=== PATIENT | female | born 1945 | race Caucasian/White ===

== ENCOUNTER 2020-08-14 21:03 | Inpatient (IN) | payer MEDICARE, SELFPAY ==
[2020-08-14 21:13] VITALS: BMI 26.1
--- NOTE | 2020-08-14 21:52 | PCM.HP.STD ---
Problem List (1) Debility Status: Acute (2) Weakness Status: Acute (3) Acute on chronic anemia Status: Acute (4) Iron deficiency anemia Status: Chronic (5) Bedbug bite Status: Chronic (6) Orthostatic hypotension Status: Chronic (7) Colon cancer Status: Resolved (8) Pseudoseizure Status: Chronic (9) Hypertension Status: Chronic (10) Hyperlipidemia Status: Chronic (11) Hypothyroidism Status: Chronic (12) GERD (gastroesophageal reflux disease) Status: Chronic (13) Depression Status: Chronic (14) Raynaud disease Status: Chronic History of Present Illness Date of Admission: 08/14/20 Chief Complaint: Here for rehabilitation, strengthening, prior to discharge home alone. The patient is a 75 year old Female with below past medical history with followin08/11/20 [facility] Emergency Department with weakness. Hemoglobin 7.2, Chest X-ray negative. Weak, tired. Usually receives IV iron weekly, but missed last 2 weeks. Weakness worsening, shortness of breath with minimal exertion. Transfused 1 unit packed red blood cells. 08/12/20 Staff wearing PPE to avoid bedbugs, patient very upset by this. Transfused 1 unit packed red blood cells. 08/13/20 Emotional about isolation for bedbug infestation. April 2020. Hemoglobin stable at 8.9. PT/OT recommended assisted facility. 08/14/20 Admit to TCU with debility, here for rehabilitation, strengthening, prior to discharge home alone. Past Medical History Past Medical History (Chronic Problems): Chronic Problems Iron deficiency anemia (Chronic) Bedbug bite (Chronic) Orthostatic hypotension (Chronic) Pseudoseizure (Chronic) Hypertension (Chronic) Hyperlipidemia (Chronic) Hypothyroidism (Chronic) GERD (gastroesophageal reflux disease) (Chronic) Depression (Chronic) Raynaud disease (Chronic) Allergies lisinopril Allergy (Verified 08/14/20 21:18) Fever and skin rash orange juice Allergy (Verified 08/14/20 21:18) PT UNSURE OF REACTION Sulfa (Sulfonamide Antibiotics) Allergy (Verified 08/14/20 21:18) Rash Home Medications: Ambulatory Orders Medication Instructions Recorded Atorvastatin Calcium 20 mg PO DAILY 08/14/20 Bupropion HCl [Bupropion HCl Sr] 150 mg PO DAILY 08/14/20 Citalopram [Celexa] 20 mg PO DAILY 08/14/20 Docusate Sodium [Colace] 1 cap PO BID 08/14/20 Ferrous Sulfate 325 mg PO TIDCM 08/14/20 Hydroxyzine HCl 25 mg PO 4X/DAY PRN PRN 08/14/20 Levetiracetam 750 mg PO BID 08/14/20 Levothyroxine [Synthroid] 75 mcg PO DAILY 08/14/20 Midodrine HCl 5 mg PO DAILY 08/14/20 Multivitamin 1 ea PO DAILY MDD 1 08/14/20 Nystatin Powder [Mycostatin Powder] 1 applic TOPICAL TID MDD rash 08/14/20 Ondansetron [Zofran] 8 mg PO TID PRN PRN 08/14/20 Pantoprazole Sodium 40 mg PO DAILY 08/14/20 Ketotifen Fumarate 1 drp OP Q12H 08/15/20 Surgical History: pacemaker implantation, - - Right hemicolectomy. 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 Lives: Alone Smoking Status: Former smoker Tobacco Use: Cigarettes Alcohol: None Drugs: None - *Family History Maternal History Items: No pertinent history Paternal History Items: No pertinent history Review of Systems Constitutional: Denies: Chills, Fever, Weight Change HEENT: Denies: Head Aches, Sinus Congestion, Sinus Drainage Cardiovascular: Denies: Chest Pain, Palpitations Respiratory: Denies: Cough, Shortness of breath at rest, Sputum production Gastrointestinal: Denies: Abdominal Pain, Nausea, Vomiting Genitourinary: Denies: Dysuria Musculoskeletal: Denies: Joint Pain, Joint Tenderness Skin: Denies: Rash, Wounds Neurological: Denies: Numbness, Tingling, Focal weakness Psychiatric: Denies: Anxiety, Depression, Homicidal Ideations, Suicidal Ideations Hematologic/ Lymphatic: Denies: Easy Bruising, Easy Bleeding VTE Information - Inpt Only VTE Present on Admission: No VTE Mechan Device Prophylaxis: Knee High JOHNNY Hose VTE Pharm Prophylaxis ordered?: No Reason prophylaxis not ordered:: Medical Contraindication Patient Problems: Active and Suspected Problems Debility (Acute) Weakness (Acute) Acute on chronic anemia (Acute) - Physical Exam Vitals/I&O's: Weight: 73.482 kg Body Mass Index (BMI) 26.1 General: Alert, Oriented x3, Cooperative HEENT: Atraumatic, PERRLA, EOMI, Normocephalic Neck: Supple, No JVD, Negative Carotid Bruits Lungs: Clear to auscultation, Normal air movement Cardiovascular: Regular rate, No murmurs Abdomen: Bowel Sounds Present, Soft, Non Tender Extremities: No edema, Capillary Refill Less than 3 Seconds Skin: No rashes, No breakdown Musculoskeletal: No Tenderness to Palpation of Joints or Extremities Neurological: Cranial nerves II-XII grossly intact Psych/Mental Status: Normal Affect, Appropriate Current Medications Atorvastatin Calcium (Atorvastatin Calcium 20 Mg Tablet) mg PO DAILY [facility] Citalopram Hydrobromide (Citalopram 20 Mg Tablet) 20 mg PO DAILY [facility] Docusate Sodium (Docusate Sodium 100 Mg Capsule) mg PO DAILY [facility] Ferrous Sulfate (Ferrous Sulfate 325 Mg Tablet) 325 mg PO TID MATEO Levetiracetam (Levetiracetam 750 Mg Tablet) 750 mg PO BID [facility] Levothyroxine Sodium (Levothyroxine 75 Mcg Tablet) mcg PO DAILY [facility] Midodrine (Midodrine Hcl 5 Mg Tablet) 5 mg PO DAILY [facility] Non-Formulary Medication (Bupropion Hcl [Bupropion Hcl Sr]) 1 tab PO DAILY [facility] Non-Formulary Medication (Hydroxyzine Hcl) 25 mg PO 4X/DAY PRN PRN PRN Reason: NAUSEA Non-Formulary Medication (Multivitamin) 1 ea PO DAILY [facility] Nystatin (Nystatin Powder 15gm Bottle) 1 applic TOPICAL TID ONE; Protocol Stop: 08/14/20 21:44 Ondansetron HCl (Ondansetron 8 Mg Tablet) 8 mg PO TID PRN PRN PRN Reason: NAUSEA Pantoprazole Sodium (Pantoprazole Sodium 40 Mg Tablet) 40 mg PO DAILY [facility] Assessment/Plan All Active Problems Debility (Acute) Weakness (Acute) Acute on chronic anemia (Acute) Colon cancer (Resolved) 75 year old female with below past medical history hospitalized for acute on chronic anemia, underwent 2 unit packed red blood cells transfusion, complicated by bedbug infestation, admitted to TCU with debility, here for rehabilitation, strengthening, prior to discharge home alone. Debility - PT/OT. Pain - Tylenol 1000MG Q6H PRN pain (1-10). Bowel - Miralax 17GM daily, Senna/colace 1 tablet BID, Dulcolax 10MG [place] daily PRN. Adult immunization - Administer Prevnar 13, Pneumovax 23, Fluzone as appropriate. DVT prophylaxis - Hold due to anemia. Hyperlipidemia - Atorvastatin 20MG QHS. Depression - Citalopram 20MG daily, Bupropion SR 150MG 1 tablet daily, stable chronic intermediate manager use, GDR not recommended. Iron deficiency anemia - Ferrex 150MG TID. Nausea - Zofran 8MG PO TID PRN, Hydroxyzine 25MG 4x/day PRN. Pseudoseizure - Keppra 750MG BID. Hypothyroidism - Levothyroxine 75MCG daily. Orthostatic hypotension - Midodrine 5MG daily. Nutrition - MVI daily. GERD - Pantoprazole 40MG daily.
[2020-08-14 21:54] VITALS: BMI 26.1
[2020-08-14 22:14] VITALS: PULSE 63; RESP 16; O2SAT 94
[2020-08-14 22:38] VITALS: BP 120/66; PULSE 63; RESP 16; TEMP 36.9; O2SAT 94
[2020-08-15 05:19] VITALS: BP 116/65; PULSE 70; RESP 18; TEMP 36.7; O2SAT 93
[2020-08-15] MEDS: Citalopram 20 MG Tablet PO (05:20)
[2020-08-15] MEDS: buPROPion 75 MG Tablet PO (05:20)
[2020-08-15] MEDS: Midodrine HCl 5 MG Tablet PO (05:20)
[2020-08-15] MEDS: levETIRAcetam 750 MG Tablet PO ×2 (05:20→17:25)
[2020-08-15] MEDS: Pantoprazole Sodium 40 MG Tablet PO (05:20)
[2020-08-15] MEDS: Levothyroxine 75 MCG Tablet PO (05:20)
[2020-08-15] MEDS: Nystatin Powder 15gm Bottle 1 APPLIC TOPICAL ×2 (05:25→17:27)
[2020-08-15 05:56] LABS: Absolute Neutrophil Count 3.3 X10^3/uL (2.0-7.7); Basophil% 1.7 % (0-1); Eosinophil# 0.28 X10^3/uL; Eosinophils% 4.8 % (0-5); Hematocrit 29.9 % (37-47); Hemoglobin 8.8 g/dL (12.0-15.0); Lymphocyte % 29.2 % (19-41); Mean Corp Hgb Conc 29.4 g/dL (32-36); Mean Corpuscular Hgb 25.3 pg (27.0-32.0); Mean Corpuscular Volume 85.9 fL (81-99); Mean Platelet Vol. 8.4 fl (6.2-12.0); Monocyte# 0.46 X10^3/uL; Monocyte% 7.9 % (0-10); NRBC Flagged by Analyzer 0 % (0-5); Neutrophil # 3.27 X10^3/uL (2.7-7.7); Neutrophil % 56.1 % (47-70); Platelet Count 472 K/mm3 (150-450); RBC Distribution Width CV 16.4 % (11.6-14.6); RBC Distribution Width SD 51.2 fl (35.1-43.9); Red Blood Count 3.48 M/mm3 (4.2-5.4); White Blood Count 5.8 K/mm3 (4.4-11.0)
[2020-08-15 06:21] LABS: Anion Gap 5 (5-15); BUN 21 mg/dL (7-18); BUN/Creat Ratio 18.4 RATIO (10-20); Calcium,Total 9.2 mg/dL (8.5-10.1); Chloride 107 mmol/L (98-107); Creatinine, Serum 1.14 mg/dL (0.55-1.02); EST Glomerular Filtration Rate 50 mL/min (>60); Est Glom Filt Rate - Afr Amer 60 mL/min (>60); Estimated Creatinine Clearance 40.53 ml/min; Glucose 89 mg/dL (74-106); Potassium 4.2 mmol/L (3.5-5.1); Sodium Level 140 mmol/L (136-145)
[2020-08-15] MEDS: Multivitamins,Therapeutic Tablet 1 TABLET PO (08:26)
[2020-08-15] MEDS: Magnesium Citrate 300 ML PO (08:35)
--- NOTE | 2020-08-15 09:46 | NURSING ---
Left message for Dr. Starr's at [facility], office requesting information about the weekly iron infusions the patient receives.
[2020-08-15] MEDS: Acetaminophen 500 MG Tablet 1000 MG PO (10:25)
[2020-08-15 10:52] VITALS: PULSE 67; RESP 18; O2SAT 98
[2020-08-15 13:46] VITALS: BP 147/64; PULSE 66; RESP 15; TEMP 36.8; O2SAT 96
--- NOTE | 2020-08-15 14:24 | NURSING ---
Received faxed orders for iron infusion from Dr. Starr's office. Will notify Dr. Luciano of new orders.
--- NOTE | 2020-08-15 15:19 | NS ---
NASIRN received call from MADALYN Franz as Res reported a significant wt loss since March during social work assessment. Res stated wt in March was 235# and went down to 160#. This appears to be consistent with information given to NASIR Austin/DIALLO and is documented in Res Nutrition Assessment. RDN will follow-up w/ Res tomorrow, 08/16 to provide further support and confirm that Res is consuming enough nutrition during TCU stay. Van Herzog MS, MICHAEL, LD
[2020-08-15] MEDS: Atorvastatin Calcium 20 MG Tablet PO (22:04)
[2020-08-16 06:07] VITALS: BP 93/60; PULSE 67; RESP 16; TEMP 36.7; O2SAT 92
[2020-08-16] MEDS: levETIRAcetam 750 MG Tablet PO ×2 (06:09→17:17)
[2020-08-16] MEDS: Citalopram 20 MG Tablet PO (06:09)
[2020-08-16] MEDS: Levothyroxine 75 MCG Tablet PO (06:10)
[2020-08-16] MEDS: Midodrine HCl 5 MG Tablet PO (06:10)
[2020-08-16] MEDS: buPROPion (SR) 150 MG Tablet.SA PO (06:10)
[2020-08-16] MEDS: Pantoprazole Sodium 40 MG Tablet PO (06:10)
[2020-08-16] MEDS: Nystatin Powder 15gm Bottle 1 APPLIC TOPICAL ×2 (06:11→17:18)
[2020-08-16] MEDS: Multivitamins,Therapeutic Tablet 1 TABLET PO (08:21)
[2020-08-16] MEDS: Tuberculin,Purif.prot.deriv. 50 TU/ML Vial 5 ML ID (12:21)
--- NOTE | 2020-08-16 14:39 | CHAPLAIN ---
Type of Pastoral Visit _x__ Initial Visit ___ Follow-up Visit ___ On-call Visit ___ General Patient Visit ___ Spiritual Assessment ___ Family Conference ___ Bereavement ___ Rapid Response ___ Code Blue ___ Other (describe below) Pastoral Care Referral From _x__ Patient ___ Family ___ Nurse ___ Physician ___ Drawer In ___ Cloud Engagement Partner ___ Other (describe below) Sacrament/Intervention _x__ Active listening ___ Anointing ___ Lutheran _x__ Bereavement ___ Communion _x__ Nisha exploration ___ _x__ Life review _x__ Prayer ___ Reconciliation ___ Sacrament of Sick _x__ Supportive presence ___ Wedding ___ Other (describe below) Pastoral Comments patient was newly and admits that she did not have a desire to eat and found herself very weak; pt has no children and all siblings are ; 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
--- NOTE | 2020-08-16 15:21 | PCM.PN.RX ---
<Fe Burns - Last Filed: 08/16/20 15:21> Progress Note - Pharmacy Subjective: TCU Admission Objective: Allergies lisinopril Allergy (Verified 08/14/20 21:18) Fever and skin rash orange juice Allergy (Verified 08/14/20 21:18) PT UNSURE OF REACTION Sulfa (Sulfonamide Antibiotics) Allergy (Verified 08/14/20 21:18) Rash Current Medications Generic Name Dose Route Start Last Admin Trade Name Freq PRN Reason Stop Dose Admin Acetaminophen 1,000 mg 08/15/20 18:14 Acetaminophen 500 Mg Tablet PO Q6H PRN PRN Pain Score 1-3 Atorvastatin Calcium 20 mg 08/15/20 22:00 08/15/20 22:04 Atorvastatin Calcium 20 Mg Tablet PO 20 mg QHS MATEO Administration Bisacodyl 10 mg 08/14/20 22:12 Bisacodyl 10 Mg Suppository RECTAL DAILY PRN Constipation Bupropion HCl 150 mg 08/16/20 06:00 08/16/20 06:10 Bupropion (Sr) 150 Mg Tablet.Sa PO 150 mg DAILY MATEO Administration Citalopram Hydrobromide 20 mg 08/15/20 06:00 08/16/20 06:09 Citalopram 20 Mg Tablet PO 20 mg DAILY MATEO Administration Docusate Sodium 100 mg 08/15/20 18:00 08/16/20 06:09 Docusate Sodium 100 Mg Capsule PO Not Given BID MATEO Hydroxyzine Pamoate 25 mg 08/14/20 22:10 Hydroxyzine Berenice 25 Mg Capsule PO 4X/DAY PRN PRN NAUSEA Levetiracetam 750 mg 08/15/20 06:00 08/16/20 06:09 Levetiracetam 750 Mg Tablet PO 750 mg BID MATEO Administration Levothyroxine Sodium 75 mcg 08/15/20 06:00 08/16/20 06:10 Levothyroxine 75 Mcg Tablet PO 75 mcg DAILY@0600 MATEO Administration Midodrine 5 mg 08/15/20 06:00 08/16/20 06:10 Midodrine Hcl 5 Mg Tablet PO 5 mg DAILY MATEO Administration Multivitamins 1 tablet 08/15/20 08:00 08/16/20 08:21 Multivitamins,Therapeutic Tablet PO 1 tablet DAILYCM MATEO Administration Nutritional Formula (Lactose Free) 120 ml 08/15/20 06:00 08/16/20 12:18 Ensure Enlive 120 Ml Liquid PO Not Given 4X/DAY [facility] Nystatin 1 applic 08/15/20 06:00 08/16/20 06:11 Nystatin Powder 15gm Bottle TOPICAL 1 applicatio BID MATEO Administration Protocol Ondansetron HCl 8 mg 08/14/20 21:40 Ondansetron Odt 4 Mg Tablet PO TID PRN PRN NAUSEA Oxycodone HCl 5 mg 08/15/20 18:14 Oxycodone 5 Mg Tablet PO Q4H PRN PRN Pain Score 4-10 Pantoprazole Sodium 40 mg 08/15/20 06:00 08/16/20 06:10 Pantoprazole Sodium 40 Mg Tablet PO 40 mg DAILY [facility] Administration Tuberculin PPD 5 tu 08/23/20 10:00 Tuberculin,Purif.Prot.Deriv. 50 Tu/Ml Vial ID 08/23/20 10:01 X1 ONE Problem List Debility (Acute) Weakness (Acute) Acute on chronic anemia (Acute) Iron deficiency anemia (Chronic) Bedbug bite (Chronic) Orthostatic hypotension (Chronic) Pseudoseizure (Chronic) Hypertension (Chronic) Hyperlipidemia (Chronic) Hypothyroidism (Chronic) GERD (gastroesophageal reflux disease) (Chronic) Depression (Chronic) Raynaud disease (Chronic) Vital Signs Temp Pulse Resp BP Pulse Ox 96.6 F L 65 17 115/65 94 08/16/20 14:11 08/16/20 14:11 08/16/20 14:11 08/16/20 14:11 08/16/20 14:11 Oxygen Delivery Method Room Air Weight: 73.482 kg Body Mass Index (BMI) 26.1 Sodium 140 mmol/L (136-145) 08/15/20 05:15 Potassium 4.2 mmol/L (3.5-5.1) 08/15/20 05:15 Chloride 107 mmol/L (98-107) 08/15/20 05:15 Carbon Dioxide 28.0 mmol/L (21.0-32.0) 08/15/20 05:15 Anion Gap 5 (5-15) 08/15/20 05:15 BUN 21 mg/dL (7-18) H 08/15/20 05:15 Creatinine 1.14 mg/dL (0.55-1.02) H 08/15/20 05:15 Est GFR (MDRD) Af Amer 60 mL/min (>60) 08/15/20 05:15 Est GFR (MDRD) Non-Af 50 mL/min (>60) L 08/15/20 05:15 BUN/Creatinine Ratio 18.4 RATIO (-20) 08/15/20 05:15 Glucose 89 mg/dL (74-106) 08/15/20 05:15 Assessment/Plan: 1. Pain: Tylenol 1000mg PO Q6H PRN pain (1-3) and oxycodone 5mg PO Q4H PRN pain score 1-10. Please continue to monitor for increased pain and PRN usage. *2. Hyperlipidemia: atorvastatin 20mg PO QHS. Please continue to monitor for muscle pain. Please consider ordering a lipid panel now and then annually as clinically appropriate. Patient does not have a lipid panel in the chart. Thanks. 3. Pseudoseizure: levetiracetam 750mg PO BID. Please continue to monitor for confusion and rash. *4. Hypothyroidism: levothyroxine 75mcg PO daily. Patient does not have a TSH level. Please consider ordering one now and then annually as clinically appropriate. Please continue to monitor for S/S of hypo/hyperthyroidism. Thanks. 5. Orthostatic hypotension: midodrine 5mg PO daily. Please continue to monitor BP (last 115/65). 6. Nutrition: MVI 1T PO daily. Please continue to monitor. 7. GERD: pantoprazole 40mg PO daily. Please continue to monitor for improvement/worsening of GERD symptoms. 8. Ondansetron 8mg PO QID PRN nausea, Hydroxyzine 25MG 4x/day PRN. Please continue to monitor for improvement/worsening of nausea and PRN use. Psychotropic Medications: 1. Depression: citalopram 20mg PO daily and bupropion SR 150MG PO daily. Please see physician note about GDR. *Unnecessary Medications: Ketotifen eye drops 1gtt OU Q12h. I did not see a documented indication for this medication. Please consider adding an indication. *Bowel Regimen: Docusate 100mg PO BID and bisacodyl suppository 10mg [place] daily PRN constipation. Patient has refused 2/2 doses. Please consider changing from scheduled to PRN. Please continue to monitor for S/S of constipation/diarrhea and PRN usage. Thanks. Date of Note:: 08/16/20 - Provider Comments Provider responsibility: Provider responsible to enter orders to implement recommendations <Usama Luciano Chi - Last Filed: 08/16/20 17:41> Progress Note - Pharmacy Subjective: [] Objective: Allergies lisinopril Allergy (Verified 08/14/20 21:18) Fever and skin rash orange juice Allergy (Verified 08/14/20 21:18) PT UNSURE OF REACTION Sulfa (Sulfonamide Antibiotics) Allergy (Verified 08/14/20 21:18) Rash Current Medications Generic Name Dose Route Start Last Admin Trade Name Freq PRN Reason Stop Dose Admin Acetaminophen 1,000 mg 08/15/20 18:14 Acetaminophen 500 Mg Tablet PO Q6H PRN PRN Pain Score 1-3 Atorvastatin Calcium 20 mg 08/15/20 22:00 08/15/20 22:04 Atorvastatin Calcium 20 Mg Tablet PO 20 mg QHS MATEO Administration Bisacodyl 10 mg 08/14/20 22:12 Bisacodyl 10 Mg Suppository RECTAL DAILY PRN Constipation Bupropion HCl 150 mg 08/16/20 06:00 08/16/20 06:10 Bupropion (Sr) 150 Mg Tablet.Sa PO 150 mg DAILY MATEO Administration Citalopram Hydrobromide 20 mg 08/15/20 06:00 08/16/20 06:09 Citalopram 20 Mg Tablet PO 20 mg DAILY MATEO Administration Docusate Sodium 100 mg 08/15/20 18:00 08/16/20 17:18 Docusate Sodium 100 Mg Capsule PO Not Given BID MATEO Hydroxyzine Pamoate 25 mg 08/14/20 22:10 Hydroxyzine Berenice 25 Mg Capsule PO 4X/DAY PRN PRN NAUSEA Levetiracetam 750 mg 08/15/20 06:00 08/16/20 17:17 Levetiracetam 750 Mg Tablet PO 750 mg BID MATEO Administration Levothyroxine Sodium 75 mcg 08/15/20 06:00 08/16/20 06:10 Levothyroxine 75 Mcg Tablet PO 75 mcg DAILY@0600 MATEO Administration Midodrine 5 mg 08/15/20 06:00 08/16/20 06:10 Midodrine Hcl 5 Mg Tablet PO 5 mg DAILY MATEO Administration Multivitamins 1 tablet 08/15/20 08:00 08/16/20 08:21 Multivitamins,Therapeutic Tablet PO 1 tablet DAILYCM MATEO Administration Nutritional Formula (Lactose Free) 120 ml 08/15/20 06:00 08/16/20 17:17 Ensure Enlive 120 Ml Liquid PO Not Given 4X/DAY MATEO Nystatin 1 applic 08/15/20 06:00 08/16/20 17:18 Nystatin Powder 15gm Bottle TOPICAL 1 applicatio BID MATEO Administration Protocol Ondansetron HCl 8 mg 08/14/20 21:40 Ondansetron Odt 4 Mg Tablet PO TID PRN PRN NAUSEA Oxycodone HCl 5 mg 08/15/20 18:14 Oxycodone 5 Mg Tablet PO Q4H PRN PRN Pain Score 4-10 Pantoprazole Sodium 40 mg 08/15/20 06:00 08/16/20 06:10 Pantoprazole Sodium 40 Mg Tablet PO 40 mg DAILY MATEO Administration Tuberculin PPD 5 tu 08/23/20 10:00 Tuberculin,Purif.Prot.Deriv. 50 Tu/Ml Vial ID 08/23/20 10:01 X1 ONE Problem List Debility (Acute) Weakness (Acute) Acute on chronic anemia (Acute) Iron deficiency anemia (Chronic) Bedbug bite (Chronic) Orthostatic hypotension (Chronic) Pseudoseizure (Chronic) Hypertension (Chronic) Hyperlipidemia (Chronic) Hypothyroidism (Chronic) GERD (gastroesophageal reflux disease) (Chronic) Depression (Chronic) Raynaud disease (Chronic) Vital Signs Temp Pulse Resp BP Pulse Ox 96.6 F L 65 17 115/65 94 08/16/20 14:11 08/16/20 14:11 08/16/20 14:11 08/16/20 14:11 08/16/20 14:11 Oxygen Delivery Method Room Air Weight: 73.482 kg Body Mass Index (BMI) 26.1 Sodium 140 mmol/L (136-145) 08/15/20 05:15 Potassium 4.2 mmol/L (3.5-5.1) 08/15/20 05:15 Chloride 107 mmol/L (98-107) 08/15/20 05:15 Carbon Dioxide 28.0 mmol/L (21.0-32.0) 08/15/20 05:15 Anion Gap 5 (5-15) 08/15/20 05:15 BUN 21 mg/dL (7-18) H 08/15/20 05:15 Creatinine 1.14 mg/dL (0.55-1.02) H 08/15/20 05:15 Est GFR (MDRD) Af Amer 60 mL/min (>60) 08/15/20 05:15 Est GFR (MDRD) Non-Af 50 mL/min (>60) L 08/15/20 05:15 BUN/Creatinine Ratio 18.4 RATIO (-20) 08/15/20 05:15 Glucose 89 mg/dL (74-106) 08/15/20 05:15 Assessment/Plan: Psychotropic Medications: Unnecessary Medications: Bowel Regimen: - Provider Comments Provider responsibility: Provider responsible to enter orders to implement recommendations Provider Comments to Recommendations by Pharmacy: Agree
--- NOTE | 2020-08-16 16:01 | NURSING ---
This nurse called over to [facility] and spoke with Pharmacist Dagmar regarding Iron infusion, Dagmar stated she spoke with the doctor and she would fax the new orders over to us.
--- NOTE | 2020-08-16 16:24 | CASEMGMT ---
Social Work Insurance issued CLD 08/18, DC 08/19. Contacted C.M. to confirm the pt's DC date and that she lives at home alone. Ousmane.M. replied she no longer meets criteria. Spoke with pt about DC, if she felt ready to DC home alone, explained appeal rights. pt does not want to appeal, and she is agreeable to DC. Pt agreeable to outpatient therapy as HHC will go into her home. Pt does drive but has niece and nephew to help transport. Pt requested [facility] outpatient PT/OT. Referral made. No DME needs. Provided MOW resources. Niece to transport pt home. 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
--- NOTE | 2020-08-16 17:12 | PCA ---
Spoke with Katty at the [place] infusion center. They cannot get patient in till next week for iron transfusion. Patient is being discharged on Thursday. Patient prefers to keep going to the [facility] for infusions. LANDEN steven
--- NOTE | 2020-08-16 19:48 | DCINST_ITS ---
- Discharge Diagnoses Current Active Problems: Current Active and Chronic Problems Debility (Acute) Weakness (Acute) Acute on chronic anemia (Acute) Iron deficiency anemia (Chronic) Bedbug bite (Chronic) Orthostatic hypotension (Chronic) Pseudoseizure (Chronic) Hypertension (Chronic) Hyperlipidemia (Chronic) Hypothyroidism (Chronic) GERD (gastroesophageal reflux disease) (Chronic) Depression (Chronic) Raynaud disease (Chronic) You will use the following diet at home:: No restrictions, Regular Your food should be the consistency of: Regular Your liquids should be the consistency of: Regular/Thin Discharge Activity: Return to Normal Activity, May Shower, Use Walker Weight Bearing Status: Weight bearing as tolerated Call your doctor if you observe: Fever of 101 or Higher, Inability to urinate, Inability to have a bowel movement, Shortness of breath, Chest pain, Uncontrolled pain Allergies/Adverse Reactions: Allergies lisinopril Allergy (Verified 08/14/20 21:18) Fever and skin rash orange juice Allergy (Verified 08/14/20 21:18) PT UNSURE OF REACTION Sulfa (Sulfonamide Antibiotics) Allergy (Verified 08/14/20 21:18) Rash Medications to take at Discharge Atorvastatin Calcium 20 mg PO DAILY 08/14/20 Bupropion HCl [Bupropion HCl Sr] 150 mg PO DAILY 08/14/20 Citalopram [Celexa] 20 mg PO DAILY 08/14/20 Docusate Sodium [Colace] 1 cap PO BID 08/14/20 Hydroxyzine HCl 25 mg PO 4X/DAY PRN PRN 08/14/20 Levetiracetam 750 mg PO BID 08/14/20 Levothyroxine [Synthroid] 75 mcg PO DAILY 08/14/20 Midodrine HCl 5 mg PO DAILY 08/14/20 Multivitamin 1 ea PO DAILY MDD 1 08/14/20 Nystatin Powder [Mycostatin Powder] 1 applic TOPICAL TID MDD rash 08/14/20 Pantoprazole Sodium 40 mg PO DAILY 08/14/20 Ketotifen Fumarate 1 drp OP Q12H 08/15/20 Acetaminophen [Tylenol] 1,000 mg PO Q6H PRN PRN tab 08/16/20 Atorvastatin Calcium [Lipitor] 20 mg PO QHS tab 08/16/20 Docusate Sodium [Colace] 100 mg PO BID cap 08/16/20 Ketotifen Fumarate 1 drp EACH EYE Q12 bottle 08/16/20 Multivitamins,Therapeutic [Multivitamin] 1 tab PO DAILYCM tab 08/16/20 Nystatin Powder [Mycostatin Powder] 1 applic TOPICAL BID bottle 08/16/20 buPROPion SR [Wellbutrin SR (150mg tablets)] 150 mg PO DAILY tablet.sa 08/16/20 hydrOXYzine pamoate capsule [Vistaril pamoate capsule] 25 mg PO 4X/DAY PRN PRN cap 08/16/20 Please follow up with your Primary Care Physician in: 1 week. Test Results: Test results from this visit will be discussed in further detail at your follow- up appointment, if applicable. Proposed Discharge Date: 08/19/20
--- NOTE | 2020-08-16 19:50 | PCM.DC.SUM ---
Discharge Date and Diagnosis - Problem List Patient Problems: Active and Suspected Problems Debility (Acute) Weakness (Acute) Acute on chronic anemia (Acute) Date of Admission: 08/14/20 Date of Discharge: 08/19/20 - Primary Discharge Diagnosis Acute Problems: Active Problems Debility (Acute) Weakness (Acute) Acute on chronic anemia (Acute) - Secondary Discharge Diagnosis Chronic Problems: Chronic Problems Iron deficiency anemia (Chronic) Bedbug bite (Chronic) Orthostatic hypotension (Chronic) Pseudoseizure (Chronic) Hypertension (Chronic) Hyperlipidemia (Chronic) Hypothyroidism (Chronic) GERD (gastroesophageal reflux disease) (Chronic) Depression (Chronic) Raynaud disease (Chronic) Hospital Course and Treatment Imaging Results: 08/15/20 02:54 Diet: Regular - General Food consistency:: Regular Liquid Consistency:: Regular/Thin Is pt able to select menu?: Yes Labs (Last 48 Hours) 08/15/20 08/15/20 08/15/20 05:15 05:15 06:35 WBC 5.8 RBC 3.48 L Hgb 8.8 L Hct 29.9 L MCV 85.9 MCH 25.3 L MCHC 29.4 L RDW Std Deviation 51.2 H RDW Coeff of Garth 16.4 H Plt Count 472 H MPV 8.4 Immature Gran % (Auto) 0.300 Neut % (Auto) 56.1 Lymph % (Auto) 29.2 Lamar % (Auto) 7.9 Eos % (Auto) 4.8 Baso % (Auto) 1.7 H Absolute Neuts (auto) 3.3 Absolute Lymphs (auto) 1.70 Nucleated RBC % 0 Sodium 140 Potassium 4.2 Chloride 107 Carbon Dioxide 28.0 Anion Gap 5 BUN 21 H Creatinine 1.14 H Estim Creat Clear Calc 40.53 Est GFR (MDRD) Af Amer 60 Est GFR (MDRD) Non-Af 50 L BUN/Creatinine Ratio 18.4 Glucose 89 Calcium 9.2 COVID-19 (MICHAEL) Not Detected Operations: None Procedures: None Summary of Care Provided: The patient is a 75 year old Female with below past medical history hospitalized for acute on chronic anemia, underwent 2 unit packed red blood cells transfusion, complicated by bedbug infestation, admitted to TCU with debility, here for rehabilitation, strengthening, prior to discharge home alone. Follow up with Hematology for weekly iron infusions. Discharge home alone, [facility] PT/OT. Patient Problems: Active and Suspected Problems Debility (Acute) Weakness (Acute) Acute on chronic anemia (Acute) - Physical Exam Vitals/I&O's: Vital Signs Temp Pulse Resp BP Pulse Ox 96.6 F L 65 17 115/65 94 08/16/20 14:11 08/16/20 14:11 08/16/20 14:11 08/16/20 14:11 08/16/20 14:11 Oxygen Delivery Method Room Air Weight: 73.482 kg Body Mass Index (BMI) 26.1 Intake and Output for Last 24 Hours 08/14/20 08/15/20 08/16/20 23:59 23:59 23:59 Intake Total 660 / 660 360 / 360 Balance 660 / 660 360 / 360 Current Medications Acetaminophen (Acetaminophen 500 Mg Tablet) 1,000 mg PO Q6H PRN PRN PRN Reason: Pain Score 1-3 Atorvastatin Calcium (Atorvastatin Calcium 20 Mg Tablet) 20 mg PO QHS [facility] Last Admin: 08/15/20 22:04 Dose: 20 mg Documented by: Bisacodyl (Bisacodyl 10 Mg Suppository) 10 mg RECTAL DAILY PRN PRN Reason: Constipation Bupropion HCl (Bupropion (Sr) 150 Mg Tablet.Sa) 150 mg PO DAILY [facility] Last Admin: 08/16/20 06:10 Dose: 150 mg Documented by: Citalopram Hydrobromide (Citalopram 20 Mg Tablet) 20 mg PO DAILY [facility] Last Admin: 08/16/20 06:09 Dose: 20 mg Documented by: Docusate Sodium (Docusate Sodium 100 Mg Capsule) 100 mg PO BID [facility] Last Admin: 08/16/20 17:18 Dose: Not Given Documented by: Hydroxyzine Pamoate (Hydroxyzine Berenice 25 Mg Capsule) 25 mg PO 4X/DAY PRN PRN PRN Reason: NAUSEA Levetiracetam (Levetiracetam 750 Mg Tablet) 750 mg PO BID [facility] Last Admin: 08/16/20 17:17 Dose: 750 mg Documented by: Levothyroxine Sodium (Levothyroxine 75 Mcg Tablet) 75 mcg PO DAILY@0600 [facility] Last Admin: 08/16/20 06:10 Dose: 75 mcg Documented by: Midodrine (Midodrine Hcl 5 Mg Tablet) 5 mg PO DAILY [facility] Last Admin: 08/16/20 06:10 Dose: 5 mg Documented by: Multivitamins (Multivitamins,Therapeutic Tablet) 1 tablet PO DAILYCM [facility] Last Admin: 08/16/20 08:21 Dose: 1 tablet Documented by: Nutritional Formula (Lactose Free) (Ensure Enlive 120 Ml Liquid) 120 ml PO 4X/DAY [facility] Last Admin: 08/16/20 17:17 Dose: Not Given Documented by: Nystatin (Nystatin Powder 15gm Bottle) 1 applic TOPICAL BID [facility]; Protocol Last Admin: 08/16/20 17:18 Dose: 1 applicatio Documented by: Ondansetron HCl (Ondansetron Odt 4 Mg Tablet) 8 mg PO TID PRN PRN PRN Reason: NAUSEA Oxycodone HCl (Oxycodone 5 Mg Tablet) 5 mg PO Q4H PRN PRN PRN Reason: Pain Score 4-10 Pantoprazole Sodium (Pantoprazole Sodium 40 Mg Tablet) 40 mg PO DAILY [facility] Last Admin: 08/16/20 06:10 Dose: 40 mg Documented by: Tuberculin PPD (Tuberculin,Purif.Prot.Deriv. 50 Tu/Ml Vial) 5 tu ID [id number] Stop: 08/23/20 10:01 Discharge Diet: No Restrictions Discharge Activity: Return to Normal Activity, May Shower, Use Walker Weight Bearing Status: Weight bearing as tolerated Call your doctor if you observe: Fever of 101 or Higher, Inability to urinate, Inability to have a bowel movement, Shortness of breath, Chest pain, Uncontrolled pain Home Medications: Medications to take at Discharge Atorvastatin Calcium 20 mg PO DAILY 08/14/20 Bupropion HCl [Bupropion HCl Sr] 150 mg PO DAILY 08/14/20 Citalopram [Celexa] 20 mg PO DAILY 08/14/20 Docusate Sodium [Colace] 1 cap PO BID 08/14/20 Hydroxyzine HCl 25 mg PO 4X/DAY PRN PRN 08/14/20 Levetiracetam 750 mg PO BID 08/14/20 Levothyroxine [Synthroid] 75 mcg PO DAILY 08/14/20 Midodrine HCl 5 mg PO DAILY 08/14/20 Multivitamin 1 ea PO DAILY MDD 1 08/14/20 Nystatin Powder [Mycostatin Powder] 1 applic TOPICAL TID MDD rash 08/14/20 Pantoprazole Sodium 40 mg PO DAILY 08/14/20 Ketotifen Fumarate 1 drp OP Q12H 08/15/20 Acetaminophen [Tylenol] 1,000 mg PO Q6H PRN PRN tab 08/16/20 Atorvastatin Calcium [Lipitor] 20 mg PO QHS tab 08/16/20 Docusate Sodium [Colace] 100 mg PO BID cap 08/16/20 Ketotifen Fumarate 1 drp EACH EYE Q12 bottle 08/16/20 Multivitamins,Therapeutic [Multivitamin] 1 tab PO DAILYCM tab 08/16/20 Nystatin Powder [Mycostatin Powder] 1 applic TOPICAL BID bottle 08/16/20 buPROPion SR [Wellbutrin SR (150mg tablets)] 150 mg PO DAILY tablet.sa 08/16/20 hydrOXYzine pamoate capsule [Vistaril pamoate capsule] 25 mg PO 4X/DAY PRN PRN cap 08/16/20 Please follow up with your Primary Care Physician in: 1 week. Disposition: Home Minutes spent on discharge:: 30 Patient Condition:: Stable Medical Necessity - Tobacco Use Smoking Status: Former smoker Tobacco Use: Cigarettes Meaningful Use Info Meaningful Use Diagnoses (Choose all that apply): None applicable
[2020-08-16] MEDS: Atorvastatin Calcium 20 MG Tablet PO (20:47)
[2020-08-17] MEDS: Ondansetron ODT 4 MG Tablet 8 MG PO (06:12)
[2020-08-17 06:13] VITALS: BP 108/67; PULSE 70; RESP 18; TEMP 37; O2SAT 98
--- NOTE | 2020-08-17 06:14 | NURSING ---
Pt complaint of nausea this AM. Requesting zofran. States she gets this random nausea at home. Stated she was told it is d/t her hx of cancer. PO Zofran given. Pt requesting 0600 meds be given with breakfast.
[2020-08-17] MEDS: Acetaminophen 500 MG Tablet 1000 MG PO (08:35)
[2020-08-17] MEDS: levETIRAcetam 750 MG Tablet PO ×2 (08:39→18:02)
[2020-08-17] MEDS: Midodrine HCl 5 MG Tablet PO (08:39)
[2020-08-17] MEDS: Pantoprazole Sodium 40 MG Tablet PO (08:39)
[2020-08-17] MEDS: Citalopram 20 MG Tablet PO (08:39)
[2020-08-17] MEDS: Levothyroxine 75 MCG Tablet PO (08:39)
[2020-08-17] MEDS: buPROPion (SR) 150 MG Tablet.SA PO (08:39)
[2020-08-17] MEDS: Nystatin Powder 15gm Bottle 1 APPLIC TOPICAL ×2 (08:40→18:02)
[2020-08-17 10:00] VITALS: PULSE 68; RESP 18; O2SAT 96
--- NOTE | 2020-08-17 10:24 | MDS.RN ---
Pain interview for jayson 08/19/20 completed.
[2020-08-17] MEDS: oxyCODONE 5 MG Tablet PO (10:57)
[2020-08-17 14:44] VITALS: BP 140/77; PULSE 60; RESP 16; TEMP 36.3; O2SAT 95
--- NOTE | 2020-08-17 14:47 | CASEMGMT ---
Social Work BIMS and PHQ-9 completed for MDS assessment. Pt answered 'yes' to thoughts of being better off or hurting herself in some way. ZEYNEP explored further. Pt expressed her trigger was her dying in April. ZEYNEP offered counseling - pt denied stated talking about my problems won't help, I just need to accept the fact my and then I can move on. Pt reports having no active thoughts, or any thoughts in the last two weeks, just when she is home by her self thinking about her . Pt's plan would be to overdose on her Xanax pills that are prescribed to her from her PCP for anxiety. She is supposed to take these daily; however, reported that her mail in pharmacy sent her more than she needed and has a total of 380 pills in a bottle at home. She has since put that bottle in a different cabinet where she does not see it all the time to remind her of taking them. Pt's protective factor is her dog. She reports not know what will happen to the dog if she does kill herself. Since pt is not active, no sitter needed at this time. ZEYNEP left messages to all numbers on chart for family. The goal is for family to take over medication management and to remove the excess number of pills from the pt home. ZEYNEP attempted to contact [facility] several times, but unable to get through. Will continue to attempt. ZEYNEP reviewed DC med list and Xanax is not ordered so no further pills will be picked up. SW to complete safety plan and contact [facility] for follow up care. Jazmine Salinas, DILIP MACKEYW
--- NOTE | 2020-08-17 16:28 | CASEMGMT ---
Social Work SW placed phone call to pt HCPOA/nephew Jose Hardy. Informed Jose of pt stockpile of Xanax and consideration of taking them. Jose was agreeable to go to pt home and assist with setting up needed meds for the week and removing stock pile from pt home. Jose is aware of dc on Thursday and states pt niece will be taking her home. Referral made to [facility]. MADALYN Morales
[2020-08-17] MEDS: Atorvastatin Calcium 20 MG Tablet PO (20:32)
[2020-08-18] MEDS: Pantoprazole Sodium 40 MG Tablet PO (05:50)
[2020-08-18] MEDS: buPROPion (SR) 150 MG Tablet.SA PO (05:50)
[2020-08-18] MEDS: Midodrine HCl 5 MG Tablet PO (05:50)
[2020-08-18] MEDS: Citalopram 20 MG Tablet PO (05:50)
[2020-08-18] MEDS: levETIRAcetam 750 MG Tablet PO ×2 (05:50→18:21)
[2020-08-18] MEDS: Levothyroxine 75 MCG Tablet PO (05:50)
[2020-08-18] MEDS: Nystatin Powder 15gm Bottle 1 APPLIC TOPICAL ×2 (05:51→18:22)
[2020-08-18 14:38] VITALS: BP 102/51; PULSE 64; RESP 16; TEMP 35.8; O2SAT 93
--- NOTE | 2020-08-18 18:00 | CASEMGMT ---
SOCIAL WORK Met with patient in room to complete Safety Plan. Patient denies any suicidal thoughts and states, they really only were back in April when my . Patient forward thinking and looking forward to upcoming trip with nephew and getting home to [place]. Patient reports has a friend, niece and nephew who she can talk to if needed. Nephew and niece are going to manage medications upon home going. Call to patient's nephew/Jose GEORGE to update Safety Plan has been completed and confirm plan for niece and nephew to manage medications and lock up/remove any additional medications from the home. Jose in agreement. Plan: Discharge home tomorrow, copy of Safety Plan on chart, original given to patient. Morenita Zabala, [employer], [employer]NCE ARTIFICER HELPER
[2020-08-18] MEDS: Atorvastatin Calcium 20 MG Tablet PO (20:43)
[2020-08-19 05:34] VITALS: BP 113/57; PULSE 62; RESP 16; TEMP 36.5; O2SAT 92
[2020-08-19] MEDS: Ondansetron ODT 4 MG Tablet 8 MG PO (05:36)
[2020-08-19] MEDS: Levothyroxine 75 MCG Tablet PO (05:37)
[2020-08-19] MEDS: Citalopram 20 MG Tablet PO (05:37)
[2020-08-19] MEDS: Midodrine HCl 5 MG Tablet PO (05:37)
[2020-08-19] MEDS: buPROPion (SR) 150 MG Tablet.SA PO (05:37)
[2020-08-19] MEDS: Pantoprazole Sodium 40 MG Tablet PO (05:37)
[2020-08-19] MEDS: levETIRAcetam 750 MG Tablet PO (05:37)
[2020-08-19] MEDS: Nystatin Powder 15gm Bottle 1 APPLIC TOPICAL (05:39)
== END 2020-08-19 11:53 | disposition home or self-care (01) | DRG 812 ==
PROVIDERS: Admitting Provider Family Medicine Geriatric Medicine; Visit Provider Family Medicine Geriatric Medicine
DX: D50.9 Iron deficiency anemia, unspecified (principal); B88.8 Other specified infestations; E78.5 Hyperlipidemia, unspecified; F32.9 Major depressive disorder, single episode, unspecified; I95.1 Orthostatic hypotension; K21.9 Gastro-esophageal reflux disease without esophagitis; E03.9 Hypothyroidism, unspecified; I10 Essential (primary) hypertension; I73.00 Raynaud's syndrome without gangrene; Z87.891 Personal history of nicotine dependence
CPT/HCPCS: 36415; 80048; 85025; 87635; 97110; 97116; 97162; 97166; 97530; 97535; 97802; 97803; U0003